=== PATIENT | female | born 1955 | race Two or more races ===

== ENCOUNTER 2016-10-22 23:26 | Emergency (ER) | payer MEDICAID, OTHER ==
[~2016-10-22] VITALS: Ht 162.6 cm; Wt 79.8 kg
[~2016-10-22 23:26] MED LIST: ASPI81TA2 PO; LISI10TA59 PO; METO25TA20 PO; NITR0.4T6 PO; PANT40TA2 PO; SIMV10TA6 PO
--- NOTE | 2016-10-22 23:26 | NUR ---
Patient brought in with family for c/o facial rash after taking Cystex and Amoxicillin for complaints of urinary frequncy/urgency today. VSS. Awaiting MD evaluation.
--- NOTE | 2016-10-22 23:26 | NUR ---
Yaritza mead in ED - 10/23/16 at 0033 by KERRY Patient brought in with family for c/o facial rash after taking Cystex and Amoxicillin (prescribed for UTI) today. VSS. Awaiting MD evaluation.
[2016-10-23] MEDS ORDERED: diphenhydrAMINE HCL 25 MG CAPSULE PO ONE (00:30)
[2016-10-23] MEDS ORDERED: diphenhydrAMINE HCL 50 MG CAPSULE ONE (00:37)
[2016-10-23] MEDS ORDERED: diphenhydrAMINE HCL 25 MG CAPSULE ONE (00:41)
[2016-10-23 00:48] LABS: APPEARANCE,URINE CLEAR (CLEAR); BILIRUBIN,URINE NEGATIVE (NEGATIVE); BLOOD, URINE TRACE-INTA Ery/uL (NEGATIVE); COLOR,URINE YELLOW (YELLOW); KETONES,URINE NEGATIVE (NEGATIVE); LEUKOCYTE ESTERASE ,URINE TRACE (NEGATIVE); NITRITE, URINE NEGATIVE (NEGATIVE); PROTEIN,URINE NEGATIVE (NEGATIVE); UGLUCOSE NEGATIVE (NEGATIVE); UROBILINOGEN,URINE 0.2 EU/dL (0.2)
[2016-10-23 00:53] LABS: BACTERIA,URINE None seen /HPF (None Seen); SQUAMOUS EPITHELIAL CELL,UR Few /HPF (None Seen); WBC,URINE 0-2 /HPF (0-3)
--- NOTE | 2016-10-23 01:15 | NUR ---
Patient discharged to home in stable condition. Written and verbal after care instructions given. Patient verbalizes understanding of instruction.
[2016-10-23 01:22] VITALS: BP 135/88
== END 2016-10-23 00:39 | disposition home or self-care (01) ==
LOC: ER 23:30
DX: T78.40XA Allergy, unspecified, initial encounter (principal); R30.0 Dysuria; I10 Essential (primary) hypertension; Z79.82 Long term (current) use of aspirin; Y92.89 Other specified places as the place of occurrence of the external cause
CPT/HCPCS: 81000-TC; A4606; Q0163; Z7610

== ENCOUNTER 2016-10-25 22:56 | Emergency (ER) | payer OTHER ==
[~2016-10-25] VITALS: Ht 165.1 cm; Wt 79.4 kg
[2016-10-25 23:08] VITALS: BP 133/84
--- NOTE | 2016-10-25 23:42 | NUR ---
CHERY SALEEM AT BEDSIDE FOR EVAL.
[2016-10-25] MEDS ORDERED: FAMOTIDINE (20 MG) 20 MG TABLET ONE (23:52)
[2016-10-25] MEDS ORDERED: predniSONE 20 MG TABLET ONE (23:52)
[2016-10-26] MEDS ORDERED: predniSONE 20 MG TABLET PO ONE
[2016-10-26] MEDS ORDERED: FAMOTIDINE (20 MG) 20 MG TABLET PO ONE
== END 2016-10-26 00:06 | disposition home or self-care (01) ==
LOC: ER 23:00
DX: T78.49XA Other allergy, initial encounter (principal); X58.XXXA Exposure to other specified factors, initial encounter; Y92.89 Other specified places as the place of occurrence of the external cause
CPT/HCPCS: 99283; A4606; J7512; Z7610 ×2

== ENCOUNTER 2016-11-03 10:10 | Emergency (ER) | payer OTHER ==
[~2016-11-03] VITALS: Ht 165.1 cm; Wt 79.4 kg
[2016-11-03 10:10] VITALS: BP 138/84
[2016-11-03 11:10] LABS: APPEARANCE,URINE Slightly Cloudy (CLEAR); BILIRUBIN,URINE SMALL (NEGATIVE); BLOOD, URINE Moderate Ery/uL (NEGATIVE); KETONES,URINE Negative (NEGATIVE); LEUKOCYTE ESTERASE ,URINE Small (NEGATIVE); NITRITE, URINE Positive (NEGATIVE); PH,URINE 5.5 (5.0-8.0); PROTEIN,URINE 100 mg/dl (NEGATIVE); UGLUCOSE Negative (NEGATIVE); UROBILINOGEN,URINE 0.2 EU/dL (0.2)
--- NOTE | 2016-11-03 11:10 | NUR ---
ADAM #20 IV ACCESS. BLOOD SAMPLE COLLECTED SENT TO LAB
[2016-11-03 11:12] LABS: COLOR,URINE Dark Yellow (YELLOW)
--- NOTE | 2016-11-03 11:15 | NUR ---
[employer] AT BEDSIDE
[2016-11-03 11:16] LABS: BASOPHILS # (AUTO) 0.3 /CMM (0.0-0.2); BASOPHILS % (AUTO) 4.4 % (0.0-2.0); EOSINOPHILS # (AUTO) 0.3 /CMM (0.0-0.7); EOSINOPHILS % (AUTO) 3.7 % (0.0-6.0); HEMATOCRIT 38 % (33-45); HEMOGLOBIN 12.3 g/dL (11.5-14.8); LYMPHOCYTES # (AUTO) 2.3 /CMM (0.8-4.8); LYMPHOCYTES % (AUTO) 29.9 % (20.0-44.0); MEAN CORPUSCULAR HEMOGLOBIN 25 PG (26.0-33.0); MEAN CORPUSCULAR HGB CONC 32 g/dl (31.0-36.0); MEAN CORPUSCULAR VOLUME 78 fL (82-100); MONOCYTES # (AUTO) 0.5 /CMM (0.1-1.30); MONOCYTES % (AUTO) 6.7 % (2.0-12.0); NEUTROPHILS # (AUTO) 4.1 /CMM (1.8-8.9); NEUTROPHILS % (AUTO) 55.3 % (43.0-81.0); PLATELET COUNT (AUTO) 253 /CMM (150-450); WHITE BLOOD COUNT (AUTO) 7.5 K/uL (4.3-11.0)
[2016-11-03 11:23] LABS: BACTERIA,URINE Moderate /HPF (None Seen); SQUAMOUS EPITHELIAL CELL,UR Few /HPF (None Seen); WBC,URINE 80-100 /HPF (0-3)
[2016-11-03 11:38] LABS: CALCIUM, SERUM 8.6 mg/dL (8.5-10.1); CREATININE 0.7 mg/dL (0.6-1.3); POTASSIUM 4.8 mmol/L (3.5-5.1)
--- NOTE | 2016-11-03 11:55 | NUR ---
Patient discharged to home in stable condition. Written and verbal after care instructions given. Patient verbalizes understanding of instruction.
== END 2016-11-03 11:56 | disposition home or self-care (01) ==
LOC: ER 10:13
DX: N39.0 Urinary tract infection, site not specified (principal); I10 Essential (primary) hypertension; Z79.82 Long term (current) use of aspirin
CPT/HCPCS: 36415; 76770-TC; 80048-TC; 81000-TC; 85025-TC; 87086-TC; 87186-TC; A4606; Z7610

== ENCOUNTER 2020-03-01 14:17 | Emergency (ER) | payer OTHER ==
[~2020-03-01] VITALS: Ht 154.9 cm; Wt 86.2 kg
[~2020-03-01 14:17] MED LIST changes: +ASPI-1169 PO; -ASPI81TA2 PO; +LISI-605 PO; -LISI10TA59 PO; +NITR0.4T48 PO; -NITR0.4T6 PO; -SIMV10TA6 PO; +SIMV10TA98 PO
[2020-03-01 14:26] VITALS: BP 153/98
[2020-03-01 14:39] LABS: BILIRUBIN,URINE Negative (NEGATIVE); COLOR,URINE YELLOW (YELLOW); LEUKOCYTE ESTERASE ,URINE Large (NEGATIVE); NITRITE, URINE Negative (NEGATIVE); PROTEIN,URINE >=300 mg/dl (NEGATIVE); UGLUCOSE Negative (NEGATIVE); UROBILINOGEN,URINE 0.2 EU/dL (0.2)
[2020-03-01 14:49] LABS: WBC,URINE 81-100 /HPF (0-3)
[2020-03-01 14:50] LABS: BACTERIA,URINE Few /HPF (None Seen)
[2020-03-01 15:02] LABS: EOSINOPHILS % (AUTO) 1.6 % (0.0-6.0); MONOCYTES # (AUTO) 0.6 /CMM (0.1-1.30)
[2020-03-01 15:05] LABS: BASOPHILS % (AUTO) 0.7 % (0.0-2.0); HEMATOCRIT 35 % (33-45); LYMPHOCYTES # (AUTO) 1.9 /CMM (0.8-4.8); LYMPHOCYTES % (AUTO) 25.9 % (20.0-44.0); MEAN CORPUSCULAR HGB CONC 31 g/dl (31.0-36.0); MEAN CORPUSCULAR VOLUME 72 fL (82-100); MONOCYTES % (AUTO) 8.6 % (2.0-12.0); NEUTROPHILS # (AUTO) 4.7 /CMM (1.8-8.9); NEUTROPHILS % (AUTO) 63.2 % (43.0-81.0); PLATELET COUNT (AUTO) 296 /CMM (150-450); RED BLOOD CELL COUNT(AUTO) 4.88 MIL/uL (4.0-5.2); WHITE BLOOD COUNT (AUTO) 7.4 K/uL (4.3-11.0)
[2020-03-01 15:17] LABS: ALBUMIN 3.7 g/dL (3.4-5.0); BILIRUBIN,DIRECT 0.1 mg/dL (0.0-0.2); BILIRUBIN,TOTAL 0.6 mg/dL (0.2-1.0); CALCIUM, SERUM 9.2 mg/dL (8.5-10.1); CREATININE 0.9 mg/dL (0.6-1.3); POTASSIUM 3.5 mmol/L (3.5-5.1); TOTAL PROTEIN, SERUM 8.6 g/dL (6.4-8.2)
[2020-03-01] MEDS ORDERED: KETOROLAC TROMETHAMINE 15 MG/ML VIAL ONE (15:58)
[2020-03-01] MEDS ORDERED: KETOROLAC TROMETHAMINE INJ 30 MG/ML VIAL IM ONE (16:00)
[2020-03-01] MEDS ORDERED: CEPH500T PO (16:01)
--- NOTE | 2020-03-01 16:16 | NUR ---
Patient discharged to home in stable condition. Written and verbal after care instructions given. Patient verbalizes understanding of instruction.
== END 2020-03-01 16:16 | disposition home or self-care (01) ==
LOC: ER 14:20
DX: N20.0 Calculus of kidney (principal); N30.01 Acute cystitis with hematuria; K44.9 Diaphragmatic hernia without obstruction or gangrene; I10 Essential (primary) hypertension; Z79.899 Other long term (current) drug therapy; Z79.82 Long term (current) use of aspirin
CPT/HCPCS: 36415; 74176; 80048; 80076; 81001; 83690; 85025; 87086; 96372; 99284; J1885; 87186-TC

== ENCOUNTER 2022-04-17 10:58 | Emergency (ER) | payer MEDICARE, OTHER ==
[~2022-04-17] VITALS: Ht 165.1 cm; Wt 83.9 kg
[~2022-04-17 10:58] MED LIST changes: +CEPH500T PO; -LISI-605 PO; +LISI10TA30 PO
--- NOTE | 2022-04-17 11:15 | NUR ---
RECEIVED PT 67 YRS FEMALE FROM HOME ACCOMPANY BY [facility] S/P TRIP AND FALL C/O PAIN ON LT ARM
--- NOTE | 2022-04-17 12:00 | NUR ---
X RAY EDONE ON LT ARM AT BED SIDE
--- NOTE | 2022-04-17 12:45 | NUR ---
SplEnt on lt arm AND LT ARM ABLE WIGLE HERE LT FINGER
[2022-04-17] MEDS ORDERED: IBUP-1955 PO (12:46)
--- NOTE | 2022-04-17 13:06 | NUR ---
Patient discharged to home in stable condition. Written and verbal after care instructions given. Patient verbalizes understanding of instruction.
[2022-04-17 13:21] VITALS: BP 150/78
--- NOTE | 2022-04-17 13:40 | NUR ---
D/C HOME WITH CD X RAY
== END 2022-04-17 13:43 | disposition home or self-care (01) ==
LOC: ER 11:04
DX: S52.602A Unspecified fracture of lower end of left ulna, initial encounter for closed fracture (principal); I10 Essential (primary) hypertension; E78.5 Hyperlipidemia, unspecified; Z79.899 Other long term (current) drug therapy; Z79.82 Long term (current) use of aspirin; W01.0XXA Fall on same level from slipping, tripping and stumbling without subsequent striking against object, initial encounter; Y93.89 Activity, other specified; Y92.89 Other specified places as the place of occurrence of the external cause; Y99.8 Other external cause status
CPT/HCPCS: 73090-TC; 73110